=== PATIENT | male | born 1935 | race African-American/Black ===

== ENCOUNTER 2025-01-06 08:29 | Inpatient (IN) | payer OTHER ==
[~2025-01-06] VITALS: Ht 180.3 cm; Wt 90.7 kg
[2025-01-06 08:45] VITALS: RESP 27
[2025-01-06 09:18] LABS: BASOPHILS % 0.6 % (0.0-2.0); EOSINOPHILS % 3.4 % (0.0-5.0); HEMATOCRIT. 30.1 % (42.0-52.0); HEMOGLOBIN. 9.7 g/dL (14.0-18.0); LYMPHOCYTES % 12.2 % (20.0-50.0); MEAN CORPUSCULAR HEMOGLOBIN 28.2 pg (28.0-32.0); MEAN CORPUSCULAR HGB CONC 32.2 g/dL (31.0-37.0); MEAN CORPUSCULAR VOLUME 87.6 fL (80.0-94.0); MEAN PLATELET VOLUME 10.4 fl (7.4-10.4); MONOCYTES % 7.5 % (2.0-8.0); NEUTROPHILS % 76.3 % (40.0-76.0); PLATELET 216 x1000/uL (130-400); RED BLOOD CELL COUNT 3.44 mill/uL (4.7-6.1); WHITE BLOOD COUNT 8.7 x1000/uL (4.5-11.0)
[2025-01-06 09:32] LABS: CHLORIDE 108 mEq/L (98-107); POTASSIUM 4.8 mEq/L (3.5-5.1); SODIUM 140 mEq/L (136-145)
[2025-01-06 09:33] LABS: CALCIUM 9.3 mg/dL (8.7-10.4); CARBON DIOXIDE 24 mEq/L (21-32)
[2025-01-06 09:38] LABS: CREATININE 1.4 mg/dL (0.6-1.3); GLUCOSE 148 mg/dL (70-105); UREA NITROGEN BLOOD 36 mg/dL (9-23)
[2025-01-06 09:39] LABS: TROPONIN I HIGH SENSITIVITY 36 ng/L (3.0-53)
[2025-01-06] MEDS: MORPHINE SULFATE 4 MG/ML INJ (FOR IV/IM USE) IV ONE (09:54)
[2025-01-06] MEDS ORDERED: ISOS30TA91 PO (10:50)
[2025-01-06] MEDS ORDERED: FURO20TA4 PO (10:50)
[2025-01-06] MEDS ORDERED: CARV3.1242 PO (10:50)
[2025-01-06] MEDS ORDERED: LISI20TA31 PO (10:50)
[2025-01-06] MEDS ORDERED: ATOR40TA70 PO (10:50)
[2025-01-06] MEDS: ATORVASTATIN CALCIUM 40MG TABLET PO SCH (11:45)
[2025-01-06] MEDS: LISINOPRIL 20MG TABLET PO SCH (11:45)
[2025-01-06] MEDS ORDERED: ONDANSETRON HCL 4MG/2ML INJ IV PRN (11:45)
[2025-01-06] MEDS: ISOSORBIDE MONONITRATE 30MG TABLET SR 24HR PO SCH (11:45)
[2025-01-06] MEDS ORDERED: ACETAMINOPHEN 650MG/20.3ML UDC PO PRN (11:45)
[2025-01-06] MEDS: TAMSULOSIN HCL 0.4MG SR CAPSULE PO SCH (11:45)
[2025-01-06] MEDS: FUROSEMIDE 20MG/2ML VIAL IVP SCH (11:45)
[2025-01-06] MEDS ORDERED: IPRATROPIUM/ALBUTEROL 0.5-3(2.5)MG/3ML NEB HHN PRN (11:45)
[2025-01-06 12:21] LABS: IRON 49 ug/dL (65-175); TROPONIN I HIGH SENSITIVITY 67 ng/L (3.0-53)
[2025-01-06 12:24] LABS: TOTAL IRON BINDING CAPACITY 197 ug/dl (250-425)
[2025-01-06 12:28] LABS: FERRITIN 36 ng/mL (22-322); FOLIC ACID (FOLATE) SERUM > 20.00 ng/mL (>5.38); VITAMIN B12 SERUM 760 pg/mL (211-911)
[2025-01-06] MEDS ORDERED: DEXTROSE 50% WATER 50ML SYRINGE IV PRN (13:15)
[2025-01-06] MEDS: ENOXAPARIN 100MG/ML SYR SUBCUT NR (16:43)
[2025-01-06] MEDS: BLOOD SUGAR DIAGNOSTIC STRIP TEST SCH (16:46)
[2025-01-06 17:26] LABS: INR 1.1; PROTHROMBIN TIME 11.6 sec (9.6-11.0)
[2025-01-06 18:47] VITALS: RESP 20
[2025-01-06 20:30] VITALS: BP_SYST 145; BP_DIAS 45; BP_DIAS 58; PULSE 82; RESP 23; TEMP 36.9; O2SAT 98
[2025-01-06 22:00] VITALS: BP 136/58; PULSE 62; RESP 20; O2SAT 99
[2025-01-06 22:14] LABS: CREATINE KINASE MB FRACTION 7.8 ng/mL (0.5-3.6)
[2025-01-06] MEDS ORDERED: IOHEXOL-350 100 ML BOTTLE ONE (22:43)
[2025-01-06] MEDS ORDERED: HYDROCODONE/ACETAMINOPHEN 5/325MG TABLET PO ONE (23:00)
[2025-01-06] MEDS: HYDROCODONE/ACETAMINOPHEN 5/325MG TABLET PO NR (23:08)
[2025-01-06 23:18] VITALS: PULSE 69; RESP 16; O2SAT 98
[2025-01-06] MEDS: IPRATROPIUM/ALBUTEROL 0.5-3(2.5)MG/3ML NEB HHN SCH (23:18)
[2025-01-07] VITALS (12 sets, daily range): BP systolic 119–170; BP diastolic 46–76; PULSE 55–82; RESP 12–24; TEMP 36.3–36.8; O2SAT 98–100
[2025-01-07] MEDS ORDERED: MELATONIN 3MG TABLET PO NR
[2025-01-07] MEDS: MELATONIN 3MG TABLET PO SCH (00:07)
[2025-01-07 00:57] LABS: CREATINE KINASE MB FRACTION 7.7 ng/mL (0.5-3.6)
[2025-01-07] MEDS: ENOXAPARIN 100MG/ML SYR SUBCUT SCH (05:29)
[2025-01-07] MEDS ORDERED: ENOXAPARIN 100MG/ML SYR SUBCUT SCH (06:00)
[2025-01-07 07:28] LABS: BASOPHILS % 0.4 % (0.0-2.0); EOSINOPHILS % 5.4 % (0.0-5.0); HEMATOCRIT. 25.2 % (42.0-52.0); HEMOGLOBIN. 8.3 g/dL (14.0-18.0); LYMPHOCYTES % 23.2 % (20.0-50.0); MEAN CORPUSCULAR HEMOGLOBIN 28.4 pg (28.0-32.0); MEAN CORPUSCULAR HGB CONC 32.9 g/dL (31.0-37.0); MEAN CORPUSCULAR VOLUME 86.3 fL (80.0-94.0); MEAN PLATELET VOLUME 10.1 fl (7.4-10.4); MONOCYTES % 12.2 % (2.0-8.0); NEUTROPHILS % 58.8 % (40.0-76.0); PLATELET 168 x1000/uL (130-400); RED BLOOD CELL COUNT 2.92 mill/uL (4.7-6.1); RED CELL DISTRIBUTION WIDTH 17.8 % (11.6-14.6); WHITE BLOOD COUNT 5.3 x1000/uL (4.5-11.0)
[2025-01-07 08:10] LABS: POTASSIUM 4.3 mEq/L (3.5-5.1)
[2025-01-07 08:11] LABS: CALCIUM 9.5 mg/dL (8.7-10.4)
[2025-01-07 08:16] LABS: CREATININE 1.4 mg/dL (0.6-1.3)
[2025-01-07 08:17] LABS: THYROID STIMULATING HORMONE 1.77 uIU/mL (0.55-4.78)
[2025-01-07 08:18] LABS: T4 FREE 1.12 ng/dL (0.89-1.76)
[2025-01-07] MEDS: HYDROCODONE/ACETAMINOPHEN 5/325MG TABLET PO NR (16:45)
[2025-01-07] MEDS: FERROUS SULFATE 325MG TABLET PO SCH (19:09)
[2025-01-07] MEDS: DICLOFENAC SODIUM 1% GEL 50GM TOP SCH (21:43)
[2025-01-08] VITALS (9 sets, daily range): BP systolic 140–166; BP diastolic 57–99; PULSE 59–75; RESP 15–23; TEMP 36.1–36.5; O2SAT 95–99
[2025-01-08 06:42] LABS: POTASSIUM 4.3 mEq/L (3.5-5.1)
[2025-01-08 06:43] LABS: HEMATOCRIT 27.4 % (42.0-52.0); HEMOGLOBIN 9.1 g/dL (14.0-18.0); MEAN CORPUSCULAR HEMOGLOBIN 28.2 pg (28.0-32.0); MEAN CORPUSCULAR HGB CONC 33.1 g/dL (31.0-37.0); MEAN CORPUSCULAR VOLUME 85.1 fL (80.0-94.0); PLATELET 178 x1000/uL (130-400); RED BLOOD CELL COUNT 3.22 mill/uL (4.7-6.1); RED CELL DISTRIBUTION WIDTH 17.5 % (11.6-14.6); WHITE BLOOD COUNT 6.1 x1000/uL (4.5-11.0)
[2025-01-08 06:44] LABS: CALCIUM 9.6 mg/dL (8.7-10.4)
[2025-01-08 06:48] LABS: CREATININE 1.4 mg/dL (0.6-1.3)
[2025-01-08] MEDS: CLONIDINE 0.1MG TABLET PO PRN (09:15)
[2025-01-09] MEDS ORDERED: ENOXAPARIN 40MG/0.4ML SYR SUBCUT SCH (09:00)
== END 2025-01-08 16:41 | disposition home or self-care (01) | DRG 280 ==
LOC: ER 08:29 → 5EST 20:28
PROVIDERS: ADMIT Hospitalist; ATTEND Hospitalist
PROC: 5A09357 Assistance with Respiratory Ventilation, Less than 24 Consecutive Hours, Continuous Positive Airway Pressure (ICD-10-PCS; principal; 2025-01-06)
DX: I13.0 Hypertensive heart and chronic kidney disease with heart failure and stage 1 through stage 4 chronic kidney disease, or unspecified chronic kidney disease (principal); I50.23 Acute on chronic systolic (congestive) heart failure; I21.A1 Myocardial infarction type 2; J96.01 Acute respiratory failure with hypoxia; I16.1 Hypertensive emergency; N17.9 Acute kidney failure, unspecified; D50.9 Iron deficiency anemia, unspecified; N18.9 Chronic kidney disease, unspecified; I25.10 Atherosclerotic heart disease of native coronary artery without angina pectoris; N40.0 Benign prostatic hyperplasia without lower urinary tract symptoms; Z79.899 Other long term (current) drug therapy
CPT/HCPCS: 36415; 71045; 71275; 73110; 80048; 80061; 82550; 82553; 82607; 82728; 82746; 82962; 83036; 83540; 83550; 83880; 84439; 84443; 84484; 85025; 85027; 93005; 94070; 94640; 94660; 97161; 97165; 99291; A4606; J1650; J1940; J2270; Q9967